=== PATIENT | male | born 2000 | race African-American/Black ===

== ENCOUNTER 2020-05-15 22:00 | Emergency (ER) | payer BC, OTHER, SELFPAY ==
--- NOTE | 2020-05-15 22:51 | EDPHYS ---
Physician Documentation [facility] Name: Gomez Johnson Age: 19 yrs Sex: Male : 2000 Arrival Date: 05/15/2020 Time: 22:09 Bed 18 Private MD: ED Physician Joel Vázquez HPI: 05/15 22:47 This 19 yrs old Black Male presents to ER via Ambulatory with complaints of loss of jmm taste, Fever. 22:47 Onset: The symptoms/episode began/occurred gradually, 2 day(s) ago. Modifying factors: jmm The symptoms are alleviated by nothing, the symptoms are aggravated by nothing. This is a 19 year old male with no chronic medical conditions that presents to the ED with complaints of loss of taste and smell and fever 2 days ago. Denies cough, shortness of breath. . Historical: - Allergies: 22:32 No Known Allergies; bb - Home Meds: 22:32 None [Active]; bb - PMHx: 22:32 None; bb - PSHx: 22:32 None; bb - Immunization history:: Adult Immunizations up to date, Flu vaccine is up to date. - Social history:: Smoking status: Patient denies any tobacco usage or history of. Patient/guardian denies using alcohol, street drugs. ROS: 22:47 Respiratory: Negative for shortness of breath, cough, wheezing, and pleuritic chest jmm pain, Abdomen/GI: Negative for abdominal pain, nausea, vomiting, diarrhea, and constipation, Neuro: Negative for headache, weakness, numbness, tingling, and seizure. 22:47 Constitutional: Positive for fever. 22:47 ENT: Positive for anomsia. 22:47 All other systems are negative. Exam: 22:47 Constitutional: This is a well developed, well nourished patient who is awake, alert, jmm and in no acute distress. Head/Face: atraumatic. Eyes: EOMI, no conjunctival erythema appreciated ENT: Moist Mucus Membranes Neck: Trachea midline, Supple Chest/axilla: Normal chest wall appearance and motion. Cardiovascular: Regular rate and rhythm. No edema appreciated Respiratory: Normal respirations, no respiratory distress appreciated Abdomen/GI: Non distended, soft Back: Normal ROM Skin: General appearance color normal MS/ Extremity: Moves all extremities, no obvious deformities appreciated, no edema noted to the lower extremities Neuro: Awake and alert, normal gait Psych: Behavior is normal, Mood is normal, Patient is cooperative and pleasant Vital Signs: 22:29 BP 146 / 75; Pulse 68; Resp 16 S; Temp 98.6(O); Pulse Ox 99% on R/A; Weight 172.37 kg bb (R); Height 5 ft. 11 in. (180.34 cm) (R); Pain 0/10; 22:29 Body Mass Index 53.00 (172.37 kg, 180.34 cm) bb MDM: 22:22 Patient medically screened. daniel 22:50 Data reviewed: vital signs, nurses notes. Counseling: I had a detailed discussion with daniel the patient and/or guardian regarding: the historical points, exam findings, and any diagnostic results supporting the discharge/admit diagnosis, the need for outpatient follow up, to return to the emergency department if symptoms worsen or persist or if there are any questions or concerns that arise at home. ED course: Patient is alert and non toxic in appearance in the ED. Patient advised to return to the ED if he developed worsening symptoms. Patient understood and agrees with the plan of care. . 05/15 22:12 Order name: COVID-19 [facility] Administered Medications: No medications were administered Disposition: 05/16 00:39 Co-signature as Attending Physician, Joel Vázquez MD. rn Disposition: 05/15/20 22:51 Discharged to Home. Impression: Other viral infections of unspecified site. - Condition is Stable. - Discharge Instructions: Viral Respiratory Infection, COVID-19. - Medication Reconciliation Form, Thank You Letter, Antibiotic Education, Prescription Opioid Use form. - Follow up: Private Physician; When: 2 - 3 days; Reason: Recheck today's complaints, Continuance of care, Re-evaluation by your physician. - Notes: Please take 4000 IU of vitamin d daily, 50 mg of zinc daily, 500 mg of quercetin twice a day, and 600 mg of NAC twice a day Addendum: 05/18/2020 11:30 Addendum: Notified patient of positive coronavirus test result, feels better, told to r n quarantine and given return precautions.. Signatures: Dispatcher [employer] EDMS Mickail, Harley, PA PA jmm Yo, Chelsea, Joel Rodriguez RN, MD MD rn Toscano, Marlene, PRINCE RN mt2 Corrections: (The following items were deleted from the chart) 05/15 23:00 22:51 05/15/2020 22:51 Discharged to Home. Impression: Other viral infections of mt2 unspecified site. Condition is Stable. Forms are Medication Reconciliation Form, Thank You Letter, Antibiotic Education, Prescription Opioid Use. Follow up: Private Physician; When: 2 - 3 days; Reason: Recheck today's complaints, Continuance of care, Re-evaluation by your physician. daniel
--- NOTE | 2020-05-15 22:51 | ER ---
Nurse's Notes [facility] Name: Gomez Johnson Age: 19 yrs Sex: Male : 2000 Arrival Date: 05/15/2020 Time: 22:09 Bed 18 Private MD: Diagnosis: Other viral infections of unspecified site Presentation: 05/15 22:29 Chief complaint: Patient states: approx 2 days ago he had a fever for about a day he bb took Aleve and it went away but now he noticed he cannot smell and is concerned about having COVID. Coronavirus screen: fever, loss of taste or smell. Ebola Screen: No symptoms or risks identified at this time. Initial Sepsis Screen: Does the patient meet any 2 criteria? No. Patient's initial sepsis screen is negative. Does the patient have a suspected source of infection? No. Patient's initial sepsis screen is negative. Risk Assessment: Do you want to hurt yourself or someone else? Patient reports no desire to harm self or others. Onset of symptoms was May 13, 2020. 22:29 Method Of Arrival: Ambulatory 22:29 Acuity: ROSLYN 4 bb Triage Assessment: 22:32 General: Appears in no apparent distress. Behavior is calm, cooperative. Pain: Denies bb pain. Neuro: Level of Consciousness is awake, alert, obeys commands, Oriented to person, place, time, situation. Respiratory: Airway is patent Respiratory effort is even, unlabored, Respiratory pattern is regular. Historical: - Allergies: 22:32 No Known Allergies; bb - Home Meds: 22:32 None [Active]; bb - PMHx: 22:32 None; bb - PSHx: 22:32 None; bb - Immunization history:: Adult Immunizations up to date, Flu vaccine is up to date. - Social history:: Smoking status: Patient denies any tobacco usage or history of. Patient/guardian denies using alcohol, street drugs. Screenin:33 Abuse screen: Denies threats or abuse. Nutritional screening: No deficits noted. bb Tuberculosis screening: No symptoms or risk factors identified. Fall Risk None identified. Assessment: 22:56 Reassessment: Patient and/or family updated on plan of care and expected duration. Pain mt2 level reassessed. Patient is alert, oriented x 3, equal unlabored respirations, skin warm/dry/pink. Patient denies pain at this time. General: Appears comfortable, Behavior is cooperative. Pain: Denies pain. Neuro: No deficits noted. Cardiovascular: No deficits noted. Respiratory: No deficits noted. GI: No signs and/or symptoms were reported involving the gastrointestinal system. : No deficits noted. EENT: Reports loss of taste. Derm: No deficits noted. Derm: No deficits noted. Musculoskeletal: No deficits noted. Vital Signs: 22:29 BP 146 / 75; Pulse 68; Resp 16 S; Temp 98.6(O); Pulse Ox 99% on R/A; Weight 172.37 kg bb (R); Height 5 ft. 11 in. (180.34 cm) (R); Pain 0/10; 22:29 Body Mass Index 53.00 (172.37 kg, 180.34 cm) ED Course: 22:09 Patient arrived in ED. am2 22:12 Harley Charles PA is PHCP. daniel 22:12 Joel Vázquez MD is Attending Physician. [facility] 22:24 Shelbie Varghese, PRINCE is Primary Nurse. mt2 22:32 Triage completed. bb 22:32 Arm band placed on Patient placed in an exam room, on a stretcher, on pulse oximetry. bb 22:33 Patient has correct armband on for positive identification. Bed in low position. Call bb light in reach. Pulse ox on. NIBP on. 22:56 No provider procedures requiring assistance completed. Patient did not have IV access mt2 during this emergency room visit. Administered Medications: No medications were administered Outcome: 22:[address] . [facility] 22:57 Discharged to home ambulatory. mt2 22:57 Condition: good 22:57 Discharge instructions given to patient, Instructed on follow up and referral plans. Demonstrated understanding of instructions, follow-up care. 23:00 Patient left the ED. mt2 Signatures: Harley Charles PA PA jmm Ballard, Brenda, RN RN Lisandra Gonzalez am2 Shelbie Varghese RN RN mt2 Corrections: (The following items were deleted from the chart) 22:35 22:34 72.57 kg; BMI: 22.3; mt2 mt2
[2020-05-20 19:44] VITALS: BP 146/75; TEMP 98.6; O2SAT 99
== END 2020-05-15 23:00 | disposition home or self-care (01) ==
LOC: ER 22:00
DX: U07.1 COVID-19 (principal); J98.8 Other specified respiratory disorders
CPT/HCPCS: 99283; U0002